=== PATIENT | male | born 1950 | race African-American/Black ===

== ENCOUNTER 2021-02-26 03:15 | Emergency (ER) | payer MEDICARE, OTHER, SELFPAY ==
--- NOTE | ~2021-02-26 | CT_ITS ---
EXAMINATION: CT brain wo con INDICATION: Transient alteration of awareness COMPARISON: None TECHNIQUE: Standard unenhanced head CT. The dose-length product (DLP) was 605.33 mGy-cm. The mA was a djusted according to patient size. Iterative reconstruction technique was employed. FINDINGS: There is no acute intraparenchymal hemorrhage. No evidence of mass lesion. No evidence of a cute infarction. There is mild periventricular and subcortical hypodensity probably related to small vessel ischemic disease. There is mild prominence of the sulci and ventricles related to cerebral atr ophy. Intracranial calcified cerebral atherosclerosis is noted. There are no extra-axial collections. There is no mass effect or midline shift. The orbits and soft tissues are unremarkable. The visualiz ed sinuses and mastoid air cells are well aerated. IMPRESSION: 1. No acute intracranial abnormality. 2. Age related findings. Reviewed, dictated and finalized at location A.
--- NOTE | ~2021-02-26 | XR_ITS ---
EXAMINATION: XR chest 2V DATE: 02/26/2021 04:23 INDICATION: Transient alteration of awareness TECHNIQUE: PA and lateral views of the chest are obtained. COMPARISON: 06/17/2012 FINDINGS: There are changes of right upper lobectomy. Stable, chronic opacities of the right lung bas e are consistent with chronic interstitial lung disease. No acute opacities are identified. There is no pleural effusion or pneumothorax. The cardiomediastinal silhouette is normal. There is mild thorac ic spondylosis. IMPRESSION: 1. No acute cardiopulmonary abnormality. Reviewed, dictated and finalized at location A.
[2021-02-26 03:25] VITALS: BP 135/88; PULSE 89; RESP 18; TEMP 37; O2SAT 94
--- NOTE | 2021-02-26 03:34 | ECG_ITS ---
Measurements Intervals [place] Rate: 84 P: 44 [place]: 183 QRS: -17 QRSD: 102 T: 21 QT: 349 QTc: 414 Interpretive Statements SINUS RHYTHM POSSIBLE LEFT ATRIAL ENLARGEMENT [-0.1mV P WAVE IN V1/V2] NONSPECIFIC T-WAVE ABNORMALITY- ANTEROLAT/INF LEADS BASELINE ARTIFACT- I, II, AVR, V4 BORDERLINE ECG Electronically Signed On 02-26-2021 7:39:12 CDT by Guille Fernández D.O.
[2021-02-26 03:48] VITALS: BP 137/86; PULSE 85; RESP 22; O2SAT 96
[2021-02-26 03:56] LABS: Basophils Absolute Auto 0.1 K/mm3 (0.0-0.1); Basophils Percent Auto 1.1 % (0.2-1.2); Eosinophils Absolute Auto 0.2 K/mm3 (0-0.3); Eosinophils Percent Auto 3.6 % (0-4.4); Hematocrit 46.2 % (42.0-52.0); Hemoglobin 15.4 g/dL (14.0-18.0); Immature Granulocyte Absolute 0.02 K/mm3 (0.00-0.031); Immature Granulocyte Percent A 0.4 % (0-0.5); Lymphocytes Absolute Auto 1.22 K/mm3 (0.9-3.2); Lymphocytes Percent Auto 25.8 % (18.3-44.2); Mean Corpuscular HGB Conc 33.3 g/dl (32-36); Mean Corpuscular Hemoglobin 29.2 pg (26-34); Mean Corpuscular Volume 87.5 fl (80-100); Mean Platelet Volume 10.4 fl (7.4-10.4); Monocytes Absolute Auto 0.6 K/mm3 (0.1-0.6); Monocytes Percent Auto 11.8 % (2.6-8.5); Neutrophils Absolute Auto 2.7 K/mm3 (1.3-6.7); Neutrophils Percent Auto 57.3 % (45.5-73.1); Platelet Count Result 235 k/mm3 (150-375); Red Blood Count 5.28 M/mm3 (4.6-6.20); Red Cell Distribution Width 12.4 % (11.5-14.5); White Blood Count 4.7 K/mm3 (4.5-10.0)
[2021-02-26 04:33] LABS: Alanine Aminotransferase 22 U/L (4-50); Albumin Level 3.7 g/dL (3.5-5.1); Alkaline Phosphatase 72 U/L (38-126); Anion Gap 14 mmol/L (8-16); Aspartate Amino Transferase 27 U/L (17-59); Bilirubin,Total 0.7 mg/dL (0.2-1.3); Blood Urea Nitrogen 10 mg/dL (9-20); Calcium 9.1 mg/dL (8.4-10.2); Carbon Dioxide 19 mmol/L (22-30); Chloride 103 mmol/L (98-107); Estimated CRCL calculation 48 ml/min; Estimated Glomerular Filt Rate > 60; Glucose 99 mg/dL (75-110); Sodium 136 mmol/L (137-145)
[2021-02-26 04:37] LABS: Ethanol < 10 mg/dL (<10)
[2021-02-26 04:41] LABS: Add Urine Microscopic? YES; Appearance Urine Clear (Clear); Bacteria Urine Trace /hpf; Bilirubin Urine Negative (Negative); Blood Urine 1+ (Negative); Color Urine Straw (Yellow); Glucose Urine UA Negative (Negative); Ketones Urine Negative (Negative); Leukocyte Esterase Ur Negative LEU/UL (Negative); Mucus Urine Rare /lpf; Nitrate Urine Negative (Negative); Protein Urine Negative (Negative); Specific Grav Ur 1.005 (1.001-1.035); Squamous Epithelial Cell Urine Rare /hpf (Few); Urobilinogen Urine Negative mg/dL (<2.0)
[2021-02-26 04:47] LABS: Amphetamine Screen Urine Negative (Negative); Barbiturate Screen Urine Negative (Negative); Benzodiazepines Screen Urine Negative (Negative); Cannabinoid Screen Urine Negative (Negative); Cocaine Screen Urine Negative (Negative); Methadone Screen Urine Negative (Negative); Opiate Screen Urine Negative (Negative); Phencyclidine Screen Urine Negative (Negative)
[2021-02-26 05:25] VITALS: BP 157/89; PULSE 83; RESP 24; O2SAT 96
--- NOTE | 2021-02-26 06:15 | ED.SEIZURE ---
HPI - Seizure General Chief Complaint: Seizure Stated Complaint: seizure Time Seen by Provider: 02/26/21 03:40 History of Present Illness HPI Narrative: Patient is a 70-year-old male who presents to the ER status post seizure. Patient does not remember the episode. Significant other reports he was laying in bed foaming of the mouth waving his arms above his head. He remained confused for a while after that episode. No loss of bowel or bladder. Patient does not believe he bit his tongue. No history of seizures. Denies drug use. No habitual use alcohol and no history of alcohol withdrawal seizure. Related Data Allergies Allergy/AdvReac Type Severity Reaction Status Date / Time No Known Allergies Allergy Unverified 06/17/12 09:20 Review of Systems Review of Systems: All systems reviewed & are unremarkable except as noted in HPI and below Constitutional: Constitutional: Denies chills, Denies fever(s) and Denies weakness ENT: Denies nasal congestion and Denies sore throat Cardiovascular: Cardiovascular: Denies chest pain and Denies radiating jaw, neck or arm pain Respiratory: Respiratory: Denies cough and Denies dyspnea Gastrointestinal: Gastrointestinal: Denies abdominal pain, Denies nausea and Denies vomiting Genitourinary: Genitourinary: Denies urinary incontinence Neurologic: Denies headache(s), Denies focal weakness and Denies numbness Comments: seizure PMFSH Past Medical History Medical History (Updated 02/26/21 @ 06:24 by Pascual De La Garza MD) History of colon cancer Surgical History Surgical History (Updated 02/26/21 @ 06:24 by Pascual De La Garza MD) History of colostomy Social History Social History (Updated 02/26/21 @ 06:24 by Pascual De La Garza MD) Smoking status: Never smoker Alcohol use details: Rare EtOH Exam Narrative: Exam Narrative: GENERAL: Well-appearing, well-nourished, and in no acute distress. HEAD: Normocephalic, atraumatic. EYES: PERRL and EOMI. ENT: Mucous membranes moist. Questionable abrasion left anterior tongue. CHEST: Clear to auscultation. No respiratory distress. HEART: Regular rate and rhythm. Normal peripheral pulses. ABDOMEN: Soft, nontender, nondistended. EXTREMITIES: Normal range of motion. No edema. SKIN: Warm, dry, no rash. NEURO: No focal deficits. Alert and oriented x3. Course Course Emergency Course: Patient resting comfortably. Unremarkable exam. Unremarkable work-up. Likely first-time seizure. Educated on abstaining from driving and avoiding drowning rest. Recommend follow-up with neurology for further evaluation. Vital Signs Vital signs: Vital Signs Temperature 98.6 F 02/26/21 03:25 Pulse Rate 89 02/26/21 03:25 Respiratory Rate 18 02/26/21 03:25 Blood Pressure 135/88 02/26/21 03:25 Pulse Oximetry 94 02/26/21 03:25 Temperature 98.6 F 02/26/21 03:25 Pulse Rate 83 02/26/21 05:25 Respiratory Rate 24 H 02/26/21 05:25 Blood Pressure 157/89 H 02/26/21 05:25 Pulse Oximetry 96 02/26/21 05:25 MDM - Seizure Lab Data Result diagrams: 02/26/21 03:38 02/26/21 03:38 Labs: Lab Results 02/26/21 02/26/21 02/26/21 Range/Units 03:38 03:38 03:38 WBC 4.7 (4.5-10.0) K/mm3 RBC 5.28 (4.6-6.20) M/mm3 Hgb 15.4 (14.0-18.0) g/dL Hct 46.2 (42.0-52.0) % MCV 87.5 (80-100) fl MCH 29.2 (26-34) pg MCHC 33.3 (32-36) g/dl RDW 12.4 (11.5-14.5) % Plt Count 235 (150-375) k/mm3 MPV 10.4 (7.4-10.4) fl Immature Gran % (Auto) 0.4 (0-0.5) % Neut % (Auto) 57.3 (45.5-73.1) % Lymph % (Auto) 25.8 (18.3-44.2) % Carter % (Auto) 11.8 H (2.6-8.5) % Eos % (Auto) 3.6 (0-4.4) % Baso % (Auto) 1.1 (0.2-1.2) % Lymph # (Auto) 1.22 (0.9-3.2) K/mm3 Carter # (Auto) 0.6 (0.1-0.6) K/mm3 Eos # (Auto) 0.2 (0-0.3) K/mm3 Baso # (Auto) 0.1 (0.0-0.1) K/mm3 Abs Immat Gran (auto) 0.02 (0.00-0.031) K/mm3 Absolute Neuts (
[2021-02-26 06:52] VITALS: BP 140/80; PULSE 81; RESP 18; O2SAT 98
== END 2021-02-26 06:55 | disposition home or self-care (01) ==
PROVIDERS: Emergency Provider Emergency Medicine; PCP Emergency Medicine
DX: R56.9 Unspecified convulsions (principal)
CPT/HCPCS: 36415; 70450; 71046; 80053; 80307; 81001; 85025; 93005; 99284

== ENCOUNTER 2021-06-26 13:43 | Outpatient (CLI) | payer MEDICARE, OTHER, SELFPAY ==
--- NOTE | ~2021-06-26 | US_ITS ---
EXAMINATION: US thyroid EXAM DATE: 06/26/2021 14:11 INDICATION: Goiter. TECHNIQUE: Multiple grayscale and Doppler images of the thyroid were obtained (by a technologist who performed the scan) and subsequently reviewed. Individual nodules and recommendations may be reporte d in accordance with TI-RADS system as designated by the 2017 ACR White Paper TI-RADS committee. The re is no prior study for comparison. FINDINGS: The right there are lobe measures 4.0 x 1.8 x 3.2 cm, the left measuring 2.9 x 1.5 x 3.2 cm. Some matute itations visualized thyroid due to reported low position, but parenchyma appears homogeneous in echog enicity and without focal nodule. Dimensions are mildly enlarged. IMPRESSION: 1. Mild thyromegaly. Reviewed, dictated and finalized at location A. IMPRESSION: 1. Mild thyromegaly.
== END 2021-06-26 13:44 | disposition home or self-care (01) ==
LOC: ANHIMG 13:45
PROVIDERS: PCP Emergency Medicine; Visit Provider Emergency Medicine
DX: E04.9 Nontoxic goiter, unspecified (principal)
CPT/HCPCS: 76536

== ENCOUNTER 2021-07-12 16:41 | Outpatient (CLI) | payer MEDICARE, OTHER, SELFPAY ==
--- NOTE | ~2021-07-12 | MR_ITS ---
EXAMINATION: MR brain/brain stem wo/w con DATE: 07/12/2021 17:53 INDICATION: Seizures TECHNIQUE: Magnetic resonance imaging (MRI) of the brain and brainstem was performed without and with 15 mL Multihance intravenous contrast. Sequences included sagittal and axial T1-weighted SE, axial d iffusion-weighted FS SE, axial T2*-weighted GRE, axial T2-weighted FLAIR, and axial T2-weighted FSE. Postcontrast axial, sagittal and coronal T1-weighted SE was obtained. Apparent diffusion coefficient (ADC) maps were created. COMPARISON: Head CT dated 02/26/2021 FINDINGS: There are no areas of restricted diffusion to suggest acute infarction. No intracranial hemorrhage or abnormal intracranial mass lesion. There are scattered areas of nonspecific increased T2-weighted si gnal intensity in the cerebral white matter, predominantly involving the deep and periventricular whi te matter is within normal limits for age and likely sequela of chronic small vessel ischemic disease . There are no intraparenchymal signal abnormalities seen on the other pulse sequences. The ventricle s are symmetric and normal in size. There are no abnormal extra-axial fluid collections. Flow voids a re seen in the cerebral arteries on the T2-weighted sequences consistent with their expected patency. Mild mucoperiosteal thickening the bilateral ethmoid sinuses. Mucous retention cyst in the left maxi llary sinus. Visualized orbits and soft tissues are unremarkable. Moderate cervical spondylosis. IMPRESSION: 1. Normal aging brain. No acute intracranial process or abnormally enhancing brain lesions. Reviewed, dictated and finalized at location A. [employer] IMPRESSION: 1. Normal aging brain. No acute intracranial process or abnormally enhancing br ain lesions.
[2021-07-12 17:20] LABS: Estimated Glomerular Filt Rate > 60
== END 2021-07-12 16:42 | disposition home or self-care (01) ==
PROVIDERS: PCP Emergency Medicine
DX: R56.9 Unspecified convulsions (principal)
CPT/HCPCS: 70553; A9577

== ENCOUNTER 2021-07-14 10:37 | Outpatient (CLI) | payer MEDICARE, OTHER, SELFPAY ==
--- NOTE | 2021-07-15 11:54 | P.NEURO_ITS ---
Neurology EEG Report General Information Date of Study: 07/14/21 TEST eeg DIAGNOSIS seizures CONDITION OF RECORDING awake drowsy and sleep EEG NUMBER [id number] CLINICAL HISTORY patient reported he has had 1 episode of his not being able to wake him up EEG DESCRIPTION basic resting occipital frequency consists of well-organized medium to high voltage 8 to 9 hertz per 2nd alpha admixed with very minimal amount of low- voltage 15 to 18 hertz per 2nd beta. During drowsiness medium voltage alpha is seen waxing and waning admixed with 7 hertz per 2nd theta activity. Hyperventilation not done. Photic stimulation produced normal drive. Non paroxysmal. Nonfocal. Nonlateralizing. IMPRESSION No significant abnormalities noted in this particular tracing though most of the tracing is recorded during drowsiness but considering the age of the patient if diagnosis of seizure is strongly suspected sleep-deprived EEG recommended
== END 2021-07-14 10:38 | disposition home or self-care (01) ==
LOC: ANHNEURO 10:48
PROVIDERS: PCP Emergency Medicine
DX: R56.9 Unspecified convulsions (principal)
CPT/HCPCS: 95816

== ENCOUNTER 2022-05-17 08:28 | Outpatient (CLI) | payer MEDICARE, OTHER, SELFPAY ==
[2022-05-17 18:32] LABS: Basophils Percent Auto 0.7 % (0.2-1.2); Eosinophils Absolute Auto 0.2 K/mm3 (0-0.3); Eosinophils Percent Auto 3.7 % (0-4.4); Hematocrit 48.6 % (42.0-52.0); Hemoglobin 16.1 g/dL (14.0-18.0); Immature Granulocyte Absolute 0.01 K/mm3 (0.00-0.031); Immature Granulocyte Percent A 0.2 % (0-0.5); Lymphocytes Absolute Auto 1.14 K/mm3 (0.9-3.2); Mean Corpuscular HGB Conc 33.1 g/dl (32-36); Mean Corpuscular Hemoglobin 29.4 pg (26-34); Mean Corpuscular Volume 88.7 fl (80-100); Mean Platelet Volume 11.2 fl (7.4-10.4); Monocytes Absolute Auto 0.5 K/mm3 (0.1-0.6); Monocytes Percent Auto 12.3 % (2.6-8.5); Neutrophils Absolute Auto 2.2 K/mm3 (1.3-6.7); Neutrophils Percent Auto 55.1 % (45.5-73.1); Platelet Count Result 246 k/mm3 (150-375); Red Blood Count 5.48 M/mm3 (4.6-6.20); Red Cell Distribution Width 12.8 % (11.5-14.5); White Blood Count 4.1 K/mm3 (4.5-10.0)
[2022-05-17 19:59] LABS: Alanine Aminotransferase 25 U/L (6-50); Albumin Level 3.9 g/dL (3.5-5.1); Alkaline Phosphatase 69 U/L (38-126); Anion Gap 6 mmol/L (8-16); Aspartate Amino Transferase 49 U/L (17-59); Bilirubin,Total 0.5 mg/dL (0.2-1.3); Blood Urea Nitrogen 15 mg/dL (9-20); Carbon Dioxide 27 mmol/L (22-30); Chloride 101 mmol/L (98-107); Cholesterol 194 mg/dL (0-200); Estimated Glomerular Filt Rate > 60; Glucose 90 mg/dL (65-110); HDL Direct 56 mg/dL; Potassium 3.6 mmol/L (3.4-5.0); Sodium 134 mmol/L (137-145); Triglycerides 70 mg/dL (<150)
[2022-05-17 20:10] LABS: LDL Cholesterol Direct 102 mg/dL
[2022-05-17 20:41] LABS: Vitamin D 25 Hydroxy 59.2 ng/mL
== END 2022-05-17 08:29 | disposition home or self-care (01) ==
PROVIDERS: PCP Emergency Medicine; Visit Provider Internal Medicine
DX: Z12.5 Encounter for screening for malignant neoplasm of prostate (principal); E55.9 Vitamin D deficiency, unspecified; Z13.220 Encounter for screening for lipoid disorders; Z13.228 Encounter for screening for other metabolic disorders; Z51.81 Encounter for therapeutic drug level monitoring; Z79.899 Other long term (current) drug therapy
CPT/HCPCS: 36415; 80053; 80061; 82306; 84153; 85025; G0103

== ENCOUNTER 2022-11-19 11:18 | Outpatient (CLI) | payer MEDICARE, OTHER, SELFPAY ==
[2022-11-19 19:20] LABS: Alanine Aminotransferase 22 U/L (6-50); Albumin Level 4.1 g/dL (3.5-5.1); Alkaline Phosphatase 63 U/L (38-126); Anion Gap 8 mmol/L (8-16); Aspartate Amino Transferase 23 U/L (17-59); Bilirubin,Total 0.6 mg/dL (0.2-1.3); Blood Urea Nitrogen 12 mg/dL (9-20); Calcium 8.8 mg/dL (8.4-10.2); Carbon Dioxide 27 mmol/L (22-30); Chloride 102 mmol/L (98-107); Estimated Glomerular Filt Rate > 60; Glucose 80 mg/dL (65-110); Potassium 3.3 mmol/L (3.4-5.0); Sodium 137 mmol/L (137-145)
[2022-11-19 21:09] LABS: Basophils Percent Auto 0.9 % (0.2-1.2); Eosinophils Absolute Auto 0.2 K/mm3 (0-0.3); Eosinophils Percent Auto 4.5 % (0-4.4); Hematocrit 47.1 % (42.0-52.0); Hemoglobin 15.6 g/dL (14.0-18.0); Lymphocytes Absolute Auto 1.16 K/mm3 (0.9-3.2); Lymphocytes Percent Auto 27.4 % (18.3-44.2); Mean Corpuscular HGB Conc 33.1 g/dl (32-36); Mean Corpuscular Hemoglobin 29.4 pg (26-34); Mean Corpuscular Volume 88.7 fl (80-100); Mean Platelet Volume 11.2 fl (7.4-10.4); Monocytes Absolute Auto 0.5 K/mm3 (0.1-0.6); Monocytes Percent Auto 11.3 % (2.6-8.5); Neutrophils Absolute Auto 2.4 K/mm3 (1.3-6.7); Neutrophils Percent Auto 55.9 % (45.5-73.1); Platelet Count Result 257 k/mm3 (150-375); Red Blood Count 5.31 M/mm3 (4.6-6.20); Red Cell Distribution Width 12.5 % (11.5-14.5); White Blood Count 4.2 K/mm3 (4.5-10.0)
== END 2022-11-19 11:19 | disposition home or self-care (01) ==
LOC: ANHGOSHLAB 11:19
PROVIDERS: PCP Internal Medicine; Visit Provider Internal Medicine
DX: G40.909 Epilepsy, unspecified, not intractable, without status epilepticus (principal); I10 Essential (primary) hypertension; Z85.038 Personal history of other malignant neoplasm of large intestine; Z93.3 Colostomy status
CPT/HCPCS: 36415; 80053; 85025

== ENCOUNTER 2023-05-22 11:14 | Outpatient (CLI) | payer MEDICARE, OTHER, SELFPAY ==
[2023-05-22 19:32] LABS: Alanine Aminotransferase 23 U/L (6-50); Alkaline Phosphatase 76 U/L (38-126); Anion Gap 4 mmol/L (8-16); Aspartate Amino Transferase 44 U/L (17-59); Bilirubin,Total 0.9 mg/dL (0.2-1.3); Blood Urea Nitrogen 13 mg/dL (9-20); Calcium 8.9 mg/dL (8.4-10.2); Carbon Dioxide 30 mmol/L (22-30); Chloride 104 mmol/L (98-107); Cholesterol 213 mg/dL (0-200); Estimated Glomerular Filt Rate > 60; Glucose 87 mg/dL (65-110); HDL Direct 57 mg/dL; Potassium 3.8 mmol/L (3.4-5.0); Sodium 138 mmol/L (137-145); Triglycerides 57 mg/dL (<150)
[2023-05-22 19:44] LABS: LDL Cholesterol Direct 116 mg/dL
[2023-05-22 20:26] LABS: Basophils Percent Auto 0.6 % (0.2-1.2); Eosinophils Absolute Auto 0.2 K/mm3 (0-0.3); Hematocrit 46.3 % (42.0-52.0); Hemoglobin 15.5 g/dL (14.0-18.0); Immature Granulocyte Absolute 0.01 K/mm3 (0.00-0.031); Immature Granulocyte Percent A 0.2 % (0-0.5); Lymphocytes Absolute Auto 1.46 K/mm3 (0.9-3.2); Lymphocytes Percent Auto 28.9 % (18.3-44.2); Mean Corpuscular HGB Conc 33.5 g/dl (32-36); Mean Corpuscular Hemoglobin 30.1 pg (26-34); Mean Corpuscular Volume 89.9 fl (80-100); Mean Platelet Volume 11.8 fl (7.4-10.4); Monocytes Absolute Auto 0.6 K/mm3 (0.1-0.6); Monocytes Percent Auto 11.5 % (2.6-8.5); Neutrophils Absolute Auto 2.8 K/mm3 (1.3-6.7); Neutrophils Percent Auto 54.8 % (45.5-73.1); Platelet Count Result 240 k/mm3 (150-375); Red Blood Count 5.15 M/mm3 (4.6-6.20); Red Cell Distribution Width 12.6 % (11.5-14.5); White Blood Count 5.1 K/mm3 (4.5-10.0)
[2023-05-22 22:32] LABS: Hepatitis C Virus Antibody Negative (Negative)
[2023-05-23 17:28] LABS: Prostate Specific Antigen 2.3 ng/mL (< OR = 4.0)
== END 2023-05-22 11:15 | disposition home or self-care (01) ==
PROVIDERS: PCP Internal Medicine; Visit Provider Internal Medicine
DX: G40.909 Epilepsy, unspecified, not intractable, without status epilepticus (principal); I10 Essential (primary) hypertension; Z13.220 Encounter for screening for lipoid disorders; Z13.228 Encounter for screening for other metabolic disorders; Z85.038 Personal history of other malignant neoplasm of large intestine; Z12.5 Encounter for screening for malignant neoplasm of prostate; Z11.59 Encounter for screening for other viral diseases
CPT/HCPCS: 36415; 80053; 80061; 84153; 85025; 86803; G0103

== ENCOUNTER 2023-11-26 13:38 | Outpatient (CLI) | payer MEDICARE, OTHER, SELFPAY ==
[2023-11-30 17:01] LABS: Testosterone Free 68.8 pg/mL (30.0-135.0); Testosterone Total 849 ng/dL (250-1100)
== END 2023-11-26 13:39 | disposition home or self-care (01) ==
PROVIDERS: PCP Internal Medicine; Visit Provider Internal Medicine
DX: E29.1 Testicular hypofunction (principal)
CPT/HCPCS: 36415; 84402; 84403

== ENCOUNTER 2024-08-12 11:07 | Outpatient (CLI) | payer MEDICARE, OTHER, SELFPAY ==
[2024-08-12 18:48] LABS: Basophils Absolute Auto 0.1 K/mm3 (0.0-0.1); Basophils Percent Auto 1.3 % (0.2-1.2); Eosinophils Absolute Auto 0.2 K/mm3 (0-0.3); Eosinophils Percent Auto 4.5 % (0-4.4); Hematocrit 48.3 % (42.0-52.0); Hemoglobin 15.9 g/dL (14.0-18.0); Immature Granulocyte Absolute 0.01 K/mm3 (0.00-0.031); Immature Granulocyte Percent A 0.3 % (0-0.5); Lymphocytes Absolute Auto 1.45 K/mm3 (0.9-3.2); Lymphocytes Percent Auto 36.4 % (18.3-44.2); Mean Corpuscular HGB Conc 32.9 g/dl (32-36); Mean Platelet Volume 10.9 fl (7.4-10.4); Monocytes Absolute Auto 0.5 K/mm3 (0.1-0.6); Monocytes Percent Auto 11.3 % (2.6-8.5); Neutrophils Absolute Auto 1.8 K/mm3 (1.3-6.7); Neutrophils Percent Auto 46.2 % (45.5-73.1); Platelet Count Result 264 k/mm3 (150-375); Red Blood Count 5.49 M/mm3 (4.6-6.20); Red Cell Distribution Width 11.9 % (11.5-14.5)
[2024-08-12 19:07] LABS: Alanine Aminotransferase 18 U/L (6-50); Albumin Level 3.9 g/dL (3.5-5.1); Alkaline Phosphatase 73 U/L (38-126); Anion Gap 3 mmol/L (4-12); Aspartate Amino Transferase 40 U/L (17-59); Bilirubin,Total 0.8 mg/dL (0.2-1.3); Blood Urea Nitrogen 11 mg/dL (9-20); Calcium 9.3 mg/dL (8.4-10.2); Carbon Dioxide 29 mmol/L (22-30); Chloride 105 mmol/L (98-107); Cholesterol 194 mg/dL (0-200); Estimated Glomerular Filt Rate > 60; Glucose 69 mg/dL (65-110); HDL Direct 53 mg/dL; Potassium 4.1 mmol/L (3.4-5.0); Sodium 137 mmol/L (137-145); Triglycerides 69 mg/dL (<150)
[2024-08-12 19:18] LABS: LDL Cholesterol Direct 106 mg/dL
[2024-08-12 19:29] LABS: Vitamin D 25 Hydroxy 54.1 ng/mL
[2024-08-12 21:48] LABS: Prostate Specific Antigen 2.9 ng/mL (< OR = 4.0)
== END 2024-08-12 11:08 | disposition home or self-care (01) ==
LOC: ANHGOSHLAB 11:09
PROVIDERS: PCP Internal Medicine; Visit Provider Nurse Practitioner
DX: E55.9 Vitamin D deficiency, unspecified (principal); I10 Essential (primary) hypertension; Z13.220 Encounter for screening for lipoid disorders; Z13.228 Encounter for screening for other metabolic disorders; Z12.5 Encounter for screening for malignant neoplasm of prostate
CPT/HCPCS: 36415; 80053; 80061; 82306; 84153; 85025; G0103

== ENCOUNTER 2025-03-11 13:49 | Outpatient (CLI) | payer MEDICARE, OTHER, SELFPAY ==
--- OUTSIDE RECORDS SUMMARY | 2025-03-11 14:00 | XMS_ITS | Continuity of Care Document ---
Author Name [facility] Organization [facility] Care Team Providers Care M48 M60 Armor Crewman Name Role Phone [facility] Unavailable Unavailable Problems Combined list of problems from Department of [facility] and Veterans Affairs facilities. It does not include entries that were removed or entered in error. Problem Status Onset Date Problem Type Date of Resolution Comments Source bilateral knee arthralgia Active 1 Condition Sep 05, 1995 Entered By: MICHAEL MCGUIRE Comment: s/psrthrosco pic surg on left [facility] Esophageal Reflux (ICD-9-CM 530.81) Active Condition [facility] Issue of Repeat Prescriptions (ICD-9-CM V68.1) Active Condition [facility] OSTEOARTHROSIS-MUL T SITE Active Condition [facility] Routine General Medical Examination at a Health Care Facility * (ICD-9-CM V70.0) Active Condition [facility] Vitamin B 12 Deficiency (ICD-9-CM 266.2) Active Condition [facility] Vitamin D Deficiency (ICD-9-CM 268.9) Active Condition [facility] PREGLAUCOMA - BOTH EYES Active Condition [facility] PRESBYOPIA Active Condition [facility] REFRACTIVE ERROR - HYPERMETROPIA Active Condition [facility] PERIPHERAL RETINAL DEGENERATION Active Condition [facility] 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 Medication Details Route Status Patient Instructions Prescription Expires Prescription Number Last Dispense Date Ordering Provider Order Date Order Qty Source ASPIRIN 325MG TAB,EC TAKE ONE TABLET BY MOUTH ONCE A DAY ORAL ACTIVE NAI GORDILLO 2007 [facility] CHOLECALCIF LINDY 50MCG (2,000UNIT) TAB TAKE ONE TABLET BY MOUTH ONCE A DAY ORAL ACTIVE NAI GORDILLO 2010 [facility] LATANOPROST (LATANOPROS T), 0.005%, DROPS, OPHTHALMIC, [employer] 2.5 ml DROP BTL Active [id number] 02/06/20 2 4 2023 2.5 Pharmac y Data Transac tion Service Facilit y LEVETIRACET AM (LEVETIRACE [place]), 500 MG, TABLET, ORAL, CAMBER PHARMACE, 500 ea. BOTTLE Active [id number] 4 2023 60 Pharmac y Data Transac tion Service Facilit y LEVETIRACET AM (LEVETIRACE [place]), 500 MG, TABLET, ORAL, CAMBER [employer]ARMACE, 500 ea. BOTTLE Active [id number] 4 2023 60 Pharmac y Data Transac tion Service Facilit y LUMIGAN (BIMATOPROS T), 0.01 %, DROPS, OPHTHALMIC, [employer] 2.5 ml DROP BTL Cancele d [id number] : 2023 0 Pharmac y Data Transac tion Service Facilit y LUMIGAN (BIMATOPROS T), 0.01 %, DROPS, OPHTHALMIC, [employer] 2.5 ml DROP BTL Cancele d [id number] : 2023 0 Pharmac y Data Transac tion Service Facilit y Immunizations Combined list of available immunizations from the Department of Defense and Veterans Affairs facilities. Immunization Series Date Given Administered By Site Reaction Lot Number CVX Code Drug Construction Person Status Comments Source COVID-19, mRNA, LNP-S, PF, 100 mcg or 50 mcg dose 2020 [employer] (MOD) Not Given COVID-19, mRNA, LNP-S, PF, 100 mcg or 50 mcg dose [facility] Influenza vaccine, quadrivalent, adjuvanted 2020 RATNA, () Not Given Influenza vaccine, quadrival ent, adjuvante d DoD INFLUENZA, UNSPECIFIED FORMULATION 2011 88 complet ed [facility] Influenza, seasonal, injectable 1 2011 Unknown, Provider [id number] Sanofi Pasteur (PMC) complet ed Influenza , seasonal, injectabl e DoD pneumococcal polysaccharid e vaccine, 23 valent 1 2010 Unknown, Provider [id number] Merck (MSD) complet ed pneumococ nestor polysacch aride vaccine, 23 valent DoD tuberculin skin test; purified protein derivative solution, intradermal 1 2008 Unknown, Provider [id number] Sanofi Pasteur (PMC) complet ed tuberculi n skin test; purified protein derivativ e solution, intraderm al DoD tetanus toxoid, reduced diphtheria toxoid, and acellular pertu is vaccine, adsorbed 1 2008 Unknown, Provider [id number] [address] (SKB) complet ed tetanus toxoid, reduced diphtheri a toxoid, and acellular pertussis vaccine, adsorbed DoD TD(ADULT) UNSPECIFIED FORMULATION 2006 139 complet ed Right Deltoid [facility] TD(ADULT) UNSPECIFIED FORMULATION 1996 139 complet ed NOTED PER CHART [facility] Encounters Combined list of: 1) Encounters from Department of Veterans Affairs facilities going backup to the last 18 months, not all VA inpatient encounters are included; 2) Encounters from the Department of Defense facilities going backup to 280 months. Location Location Details Encounter Type Encounter Number Reason For Visit Attending Provider ADM Date DC Date Status Disposition Source [address] [place] [address] [place] [facility]Opt ometry) OUTPATIENT [id number] routine eye exam GERTRUDE CEVALLOS 09/07 Released w/o Limitations [address] [place] [address] Sea [facility]O ptometr y) [address] [place] [address] [place] [facility]Opt ometry) OUTPATIENT [id number] HVF 24-2 GERTRUDE CEAVLLOS 11/08 Released w/o Limitations [address] [place] [address] [place] [facility] ([facility]O ptometr y) [address] [place] [address] [place] [facility]Opt ometry) OUTPATIENT [id number] 24 -2 visual field and oct GERTRUDE CEVALLOS 02/07 Released w/o Limitations [address] [place] [address] Sea [facility]O ptometr y) [address] [place] [address] [place] [facility]Opt ometry) OUTPATIENT [id number] F 24-May JANA MALDONADO 05/15 Released w/o Limitations [address] [place] [address] [place] [facility] ([facility]O ptometr y) [facility] Outpatient Encounter [id number] 1 05/28 [facility] Procedures Combined list of: 1) Procedures from Department of Veterans Affairs facilities going back up to thelast 18 months, not all VA non-surgical procedures are included; 2) All procedures from the Department of Defense facilities. Procedure Procedure Type Code Date Perfomer Comments [facility] e FUNDUS PHOTOGRAPHY WITH INTERPRETATION AND REPORT 05/15/20 11 [facility] SCANNING COMPUTERIZED OPHTHALMIC DIAGNOSTIC IMAGING, POSTERIOR SEGMENT, WITH INTERPRETATION AND REPORT, UNILATERAL OR BILATERAL; RETINA 02/08/20 11 [facility] OPHTHALMOLOGICAL SERVICES: MEDICAL EXAMINATION AND EVALUATION, WITH INITIATION OR CONTINUATION OF DIAGNOSTIC AND TREATMENT PROGRAM; INTERMEDIATE, ESTABLISHED PATIENT 11/09/19 11 [facility] FITTING OF SPECTACLES, EXCEPT FOR APHAKIA; BIFOCAL 09/07/19 11 [facility] LOBECTOMY OF LUNG 09/01/18 98 [facility] FIBER-OPTIC BRONCHOSCOPY 09/01/18 98 [facility] Fundus Photography Fundus Photography [id number] 11 JANA MALDONADO [facility] Optical Coherence Tomography 05/15/20 11 JANA MALDONADO [facility] Visual [place] Test Extended Examination Visual [place] Test Extended Examination [id number] 05/15/20 11 JANA MALDONADO [facility] Ophthalmological Prior Patient Start Intermediate Level Care Ophthalmological Prior Patient Start Intermediate Level Care [id number] 05/15/20 11 JANA MALDONADO [facility] Scanning Computerized Ophthalmic Diagnostic Imaging Retina Scanning Computerized Ophthalmic Diagnostic Imaging Retina [id number] 02/08/20 11 VAL CEVALLOS [facility] Visual [place] Test Extended Examination Visual [place] Test Extended Examination [id number] 02/08/20 11 VAL CEVALLOS [facility] Ophthalmological Prior Patient Start Intermediate Level Care Ophthalmological Prior Patient Start Intermediate Level Care [id number] 02/08/20 11 VAL CEVALLOS [facility] Scanning Computerized Ophthalmic Diagnostic Imaging Retina Scanning Computerized Ophthalmic Diagnostic Imaging Retina [id number] 11/09/19 11 VAL CEVALLOS [facility] Visual [place] Test Extended Examination Visual [place] Test Extended Examination [id number] 11/09/19 11 VAL CEVALLOS [facility] Ophthalmological Prior Patient Start Intermediate Level Care Ophthalmological Prior Patient Start Intermediate Level Care [id number] 11/09/19 11 VAL CEVALLOS [facility] [employer] Fund[employer] Photography [id number] 11 VAL CEVALLOS [facility] Scanning Computerized Ophthalmic Diagnostic Imaging 09/07/19 11 VAL CEVALLOS [facility] Visual [place] Test Intermediate Examination Visual [place] Test Intermediate Examination [id number] 09/07/19 11 VAL CEVALLOS [facility] [employer] Fitting Bifocals (Not For Aphakia) [employer] Fitting Bifocals (Not For Aphakia) [id number] 09/07/19 11 VAL CEVALLOS [facility] Determination Of Refractive State Determination Of Refractive State [id number] 09/07/19 11 VAL CEVALLOS [facility] Ophthalmological New Patient Start Comprehensive Care Ophthalmological New Patient Start Comprehensive Care [id number] 09/07/19 11 VAL CEVALLOS [facility] Social History Combined list of available smoking, tobacco, and other social history from Department of Defense and [facility] facilities. Social History Type Response Date Comment Sour e Tobacco smoking status NHIS QUIT TOBACCO >7 YEARS AGO 11/15/2006 [facility] History of tobacco use CURRENT NON-TOBACCO USER-HX OF USE 05/15/2006 [facility] History of tobacco use CURRENT NON-TOBACCO USER-HX OF USE 05/09/2004 [facility] History of tobacco use CURRENT NON-TOBACCO USER-HX OF USE 05/27/2003 quit 1996 [facility] History of tobacco use CURRENT NON-TOBACCO USER-HX OF USE 05/28/2002 [facility] History of tobacco use CURRENT NON-TOBACCO USER-HX OF USE 02/06/2001 [facility] History of tobacco use CURRENT NON-TOBACCO USER-HX OF USE 11/06/2000 quit 3 yrs. ago. [facility] This section is an empty social history section. [facility] Advance Directives List of completed, amended, or rescinded Advance Directives on record at Department of Veterans Affairs facilities. An actual copy of the Directive is not included. Date Advance Directive Provider Source 11/02/[address] C[address] LAN[address]Y [facility]
[2025-03-11 19:18] LABS: Anion Gap 7 mmol/L (4-12); Blood Urea Nitrogen 13 mg/dL (9-20); Calcium 9.1 mg/dL (8.4-10.2); Carbon Dioxide 27 mmol/L (22-30); Chloride 103 mmol/L (98-107); Estimated Glomerular Filt Rate 56; Glucose 78 mg/dL (65-110); Potassium 3.7 mmol/L (3.4-5.0); Sodium 137 mmol/L (137-145)
== END 2025-03-11 13:50 | disposition home or self-care (01) ==
LOC: ANHGOSHLAB 13:50
PROVIDERS: PCP Internal Medicine; Visit Provider Clinical Nurse Specialist
DX: I10 Essential (primary) hypertension (principal)
CPT/HCPCS: 36415; 80048